=== PATIENT | female | born 1960 | race Caucasian/White ===

== ENCOUNTER 2024-04-07 13:26 | Outpatient (REF) | payer BC, SELFPAY ==
--- NOTE | ~2024-04-07 | XR_ITS ---
EXAMINATION: XR KNEE, LEFT CLINICAL INFORMATION: Pain in left knee. COMPARISON: None available. TECHNIQUE: Three views of the left knee. FINDINGS: The bones are diffusely demineralized. Moderate narrowing of the medial compartment with moderate medial marginal osteophytes. Moderate joint effusion. Small posterior patellar and lateral marginal osteophytes. XR/XR knee LT 3V IMPRESSION: Moderate degenerative changes.
== END 2024-04-07 13:27 | disposition home or self-care (01) ==
LOC: HO.HOSX 13:26
PROVIDERS: PCP Family Medicine; Visit Provider Orthopaedic Surgery
DX: M23.8X2 Other internal derangements of left knee (principal)
CPT/HCPCS: 73562

== ENCOUNTER 2024-04-07 13:26 | Outpatient (AMB) | payer BC, SELFPAY ==
--- NOTE | 2024-04-07 13:29 | A.OFFVIS_ITS ---
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 Gordon with intermittent left knee pain. The patient states that she has tried Tylenol which gives him mild relief. She has also tried diclofenac which gave her fairly good relief. She notices her pain mostly at night. She denies any locking or giving way. She has not been to formal physical therapy. She has had a cortisone injection in the past which gave her fairly good relief. 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[employer], Physical Exam Vital Signs: BMI result Body Mass Index 29.0 Const Other: Well-nourished well-developed very friendly female awake alert and oriented x3 in no acute distress Extrem Other: Bilateral lower extremity examination shows good capillary refill, no skin lesions noted, normal sensation light touch Left knee examination shows a minimal effusion, palpable crepitus with range of motion, pain with range of motion, no instability Results Reviewed Results Reviewed: X-rays of the patient's left knee show mild to moderate joint space narrowing most significant in the medial compartment, no acute bony abnormalities Assessment & Plan Assessment & Plan (1) Left knee pain: Code(s): M25.562 - Pain in left knee Category: Medical Plan Ms. Barragan presents with left knee pain due to degenerative joint disease. I had a lengthy discussion with the patient regarding the treatment options. I did refill her prescription for diclofenac. I also gave her a prescription to go to formal physical therapy. We will hold off on another injection at this time. She will contact me prior to her follow-up appointment in 2 months should any questions or concerns arise. Feel free to call me at any time should questions regarding her orthopedic management arise. I spent 21 minutes in reviewing the patient's records and imaging studies, seeing the patient and documenting in the medical record. Orders: Orders XR knee LT 3V 04/07/24 M25.562 - Pain in left knee PT Evaluation and Treatment 04/07/24 M25.562 - Pain in left knee Medications: New diclofenac sodium 75 mg PO Q12H PRN 60 tabs 2RF pain 1 month Coding Level of Care Code New Pt Level 2 (74809) Diagnoses Left knee pain M25.562
[2024-04-07 13:55] VITALS: BMI 29.0
== END 2024-04-07 14:16 | disposition home or self-care (01) ==
PROVIDERS: PCP Family Medicine; Visit Provider Orthopaedic Surgery
DX: M25.562 Pain in left knee (principal)
CPT/HCPCS: 99204

== ENCOUNTER 2024-06-10 10:21 | Outpatient (AMB) | payer BC, SELFPAY ==
--- NOTE | 2024-06-10 10:22 | A.OFFVIS_ITS ---
Vital Signs 06/10/24 10:23 Height 5 ft 5 in Weight 174 lb BMI 29.0 Intake Visit Reasons: ov-Lt knee pain/ treated about 3 years ago 2020 Intake Note: Aniyah is a 63 year old female who presents with complaints of progressively worsening left knee pain. The patient has been taking diclofenac intermittently which gives her temporary relief. She has had multiple cortisone injections given into her left knee by myself while I was working in [place]. She got minimal relief from the most recent injection. She has also done physical therapy exercises which aggravated her pain. She has failed 3 months of a home exercise program as well as 3 months of topical and oral anti-inflammatory medicines as well as Tylenol. The patient states that her left knee pain is now interfering with her activities of daily living and her ability to sleep well through the night. She wishes to hold off on surgery for as long as possible. 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 Vital Signs: BMI result Body Mass Index 29.0 Const Other: Well-nourished well-developed very friendly female awake alert and oriented x3 in no acute distress Extrem Other: Bilateral lower extremity examination shows good capillary refill, no skin lesions noted, normal sensation light touch Left knee examination shows a minimal effusion, palpable crepitus with range of motion, pain with range of motion, range of motion from -3 degrees to 115 degrees, no instability Results Reviewed Results Reviewed: X-rays of the patient's left knee show joint space narrowing, subchondral sclerosis, no acute bony abnormalities Assessment & Plan Assessment & Plan (1) Osteoarthritis of left knee: Code(s): M17.12 - Unilateral primary osteoarthritis, left knee Category: Medical Plan Ms. Barragan presents with progressively worsening left knee pain due to osteoarthritis. I had a lengthy discussion with the patient regarding the treatment options. She wishes hold off on surgery for as long as possible. I agree with this plan. She has not gotten lasting relief from cortisone injections in the past. Thus, I will see whether or not the patient's insurance company will cover a viscosupplementation injection such as Durolane. I will see her back once the injection is available. Feel free to call me at any time should questions regarding her orthopedic management arise. I spent 22 minutes in reviewing the patient's records and imaging studies, seeing the patient and documenting in the medical record. Coding Level of Care Code Est Pt Level 3 (93777) Diagnoses Osteoarthritis of left knee M17.12
[2024-06-10 10:23] VITALS: BMI 29.0
== END 2024-06-10 10:40 | disposition home or self-care (01) ==
PROVIDERS: PCP Family Medicine; Visit Provider Orthopaedic Surgery
DX: M17.12 Unilateral primary osteoarthritis, left knee (principal)
CPT/HCPCS: 99213

== ENCOUNTER → 2024-06-10 10:21 | Outpatient (BNVA) | payer BC, SELFPAY | PROVIDERS: PCP Family Medicine; Visit Provider Orthopaedic Surgery ==